=== PATIENT | female | born 1985 | race Caucasian/White ===

== ENCOUNTER 2023-06-10 22:18 | Emergency (ER) | payer OTHER, SELFPAY ==
[2023-06-10 22:20] VITALS: BP 138/67
--- NOTE | 2023-06-10 23:38 | ED.GENMED ---
History of Present Illness
General
Chief Complaint: Abdominal Symptoms
Source: patient
Time Seen by Provider: 06/10/23 23:13
Travel History
Have you had any contact with someone who has COVID-19?: No
Do you have any symptoms of coronavirus? Fever > 100 degrees, chills, cough, shortness of breath, sore throat, loss of taste or smell, muscle aches, or headache?: Yes
Symptoms:: fever
History of Present Illness
History of Present Illness:
37-year-old female with no significant past medical history, currently 7 weeks , presenting the emergency department for evaluation after she had persistent nausea today and then subsequently around 5 PM started with vomiting and diarrhea.
Patient notes that the vomiting has seemed to have subsided but she took her temperature and noticed it at 100.2. She called her primary care physician who recommended patient come to the ER to be evaluated since she was in her first trimester with
a fever. Patient states that she has a few family members at home who have upper respiratory infections but she denies any upper respiratory symptoms herself. She denies any recent travel or recent antibiotics. She denies any abdominal pain,
vaginal bleeding, vaginal discharge or any other concerns presently.
Past History
Past History
ED Past Medical History: None
ED Past Surgical History: None
Social History
Tobacco: Non-smoker
Alcohol: None
Drug: None
Personal:
Living: with family
Review of Systems
Review of Systems
All Other Systems: ROS reviewed and negative except as documented in HPI and ROS
Phy Exam
Physical Exam
Physical Exam:
GENERAL: Alert , in no apparent distress
EYE: clear conjunctiva b/l
HEAD: NCAT
ENT: o/p clr, mmm.
CARDIAC: Regular rate and rhythm .
LUNGS: Clear breath sounds bilaterally, no acute respiratory distress, no wheezes/rales/rhonchi
ABDOMEN: Soft, without focal tenderness, no r/g, no cvat, negative Samson sign, no tenderness at McBurney's point
NEUROLOGICAL: Alert and oriented
SKIN: Warm and dry, skin intact.
MUSCULOSKELETAL: No edema, well perfused.
PSYCH: Normal and appropriate interaction.
Scores
Heart Failure Risk
Heart Failure Risk Score: Not Applicable
Heart Score for Chest Pain Patients
STEMI patient?: Not applicable
Withdrawal Assessment of Alcohol
Withdrawal Assessment Completed?: Not applicable
Course
Orders/Labs/Results
Orders:
Orders
06/10/23 23:21
0.9% Sodium Chloride 1000 ml [Nss] 1,000 ml IV BOLUS
Acetaminophen [Tylenol] 1,000 mg PO NOW STA
06/10/23 23:35
Beta HCG Quantitative Urgent
Is this a screen?: No
COVID-19 Antigen Urgent
Source: Nasal Swab
Complete Blood Count/With Diff Urgent
Comprehensive Metabolic Panel Urgent
Lipase Urgent
Influenza A+B Rapid Molecular Urgent
ANTONIO Source: Nasal Swab
Specimen Description:
Abnormal Lab Results
06/10/23
23:35
Absolute Neuts (auto) 8.0 H 10^3/uL
(1.4-6.5)
Absolute Lymphs (auto) 0.5 L 10^3/uL
(1.2-3.4)
Neutrophils % 91.3 H %
(42.2-75.2)
Lymphocytes % 5.5 L %
(20.5-51.1)
Sodium 132 L mmol/L
(135-145)
Creatinine 0.5 L mg/dL
(0.6-1.0)
Glucose 110 H mg/dl
(70-99)
06/10/23 23:35
06/10/23 23:35
Vital Signs
Initial and Last Documented VS:
Initial Vital Signs
Temp Pulse Resp BP Pulse Ox
100.5 F H 104 18 138/67 100
06/10/23 22:20 06/10/23 22:20 06/10/23 22:20 06/10/23 22:20 06/10/23 22:20
Last Documented Vital Signs
Temp Pulse Resp BP Pulse Ox
100.5 F H 104 18 138/67 100
06/10/23 22:20 06/10/23 22:20 06/10/23 22:20 06/10/23 22:20 06/10/23 22:20
MDM/Problems Addressed
Differential Diagnosis Includes:
Gastroenteritis, gastritis/reflux, related nausea and vomiting, I do not have concern for related complication such as ectopic
MDM/Problems Addressed:
37-year-old female presenting to the emergency department at the request of her primary care physician due to nausea vomiting diarrhea with low-grade fever. Patient reports her symptoms seem to be a little bit improved presently she has been able
to tolerate p.o. since her vomiting spell. She overall looks well-appearing and in no acute distress. Abdomen is reassuring. Will check labs and treat with IV fluids. COVID and flu testing ordered. Tylenol for fever. Anticipate discharge home.
*Pulse Oximetry
Patient hypoxic: no
*Critical Care Note
Total Time (30-74mins, 75-104mins- exclusive of procedures): Not Applicable
Patient Management
Escalation/DeEscalation of care consider admission/obs:
Patient feeling better following fluids and Tylenol. Her lab work was overall reassuring. She was able to tolerate p.o. without difficulty. Advised on return precautions to the emergency department. Patient otherwise feels comfortable being
discharged home. I did offer nausea medication however patient declines.
ED Attending Note
-
Portions of this chart may have been created with voice recognition software.� Occasional wrong word or��sound alike� substitutions may have occurred due to the inherent limitations of voice recognition software.
Discharge Plan
Departure
Patient Disposition: Home (Routine Discharge)
Date of Disposition: 06/11/23
Time of Disposition: 00:56
Patient with high blood pressure during this ER visit?: No
Discharge Problem:
Nausea and vomiting, Diarrhea
Instructions: Nausea and Vomiting, Adult (DC)
Referrals:
Jamal Manzano MD [Family Provider] -
Interventions
Interventions:
*Risk Screen - Suicide Last Done: 06/10/23 22:20
*General Assessment Last Done: 06/10/23 22:20
*Neglect/Abuse Screening Last Done: 06/10/23 22:20
ED- Fall Risk Assessment Last Done: 06/10/23 22:20
*ED COVID-19 Vaccine History Last Done: 06/10/23 22:20
EH-Gnavrh-Szgsnxzhck Assessment Last Done: 06/10/23 23:48
[2023-06-10] MEDS: TYLENOL 1000 MG PO (23:41)
[2023-06-10] MEDS: NSS 1000 IV (23:42)
[2023-06-10 23:46] LABS: % Basophils 0.2 % (0-2); % Eosinophils 0.1 % (0-6); % Immature Granulocytes 0.2 % (0-0.5); % Lymphocytes 5.5 % (20.5-51.1); % Monocytes 2.7 % (1.7-9.3); % Neutrophils 91.3 % (42.2-75.2); Absolute Lymphocytes 0.5 10^3/uL (1.2-3.4); Absolute Monocytes 0.2 10^3/uL (0.1-0.6); Hematocrit 38.3 % (37.0-47.0); Hemoglobin 13.8 g/dL (12.0-16.0); Mean Corpuscular Hgb 30.8 pg (27.0-31.0); Mean Corpuscular Volume 85.5 fL (81.0-99.0); Mean Platelet Volume 10.4 fL (7.4-10.4); Nucleated Red Blood Cells % 0 %; Platelet Count 193 10^3/uL (130-400); Red Blood Cell Count 4.48 10^6/uL (4.20-5.40); Red Cell Dist. Width 12.3 % (11.5-14.5); White Blood Cell Count 8.8 10^3/uL (4.8-10.8)
[2023-06-11] LABS: ALT (SGPT) 19 U/L (0-35); AST (SGOT) 23 U/L (14-36); Albumin 4.4 g/dl (3.5-5.0); Alkaline Phosphatase 42 U/L (38-126); Blood Urea Nitrogen 7 mg/dl (7-17); Calcium 8.8 mg/dl (8.4-10.2); Carbon Dioxide 25 mmol/L (22-30); Chloride 101 mmol/L (98-107); Glucose 110 mg/dl (70-99); Lipase 99 U/L (23-300); Sodium 132 mmol/L (135-145); Total Bilirubin 0.9 mg/dl (0.2-1.3); Total Protein 6.9 g/dl (6.3-8.2); eGFR > 60.00
[2023-06-11 00:05] LABS: COVID-19 Antigen Negative (Negative)
[2023-06-11 01:37] VITALS: BP 107/68
== END 2023-06-11 01:38 | disposition home or self-care (01) ==
LOC: EMR 22:18
PROVIDERS: Physician Assistant Medical; EMERGENCY PHYSICIAN Emergency Medicine; FAMILY PHYSICIAN Family Medicine
DX: O21.9 Vomiting of pregnancy, unspecified (principal); R19.7 Diarrhea, unspecified; Z11.52 Encounter for screening for COVID-19; Z3A.01 Less than 8 weeks gestation of pregnancy
CPT/HCPCS: 99284; 96360; 80053; 83690; 84702; 85025; 87502; 87811